=== PATIENT | male | born 1985 | race Two or more races ===

== ENCOUNTER 2019-05-14 16:30 | Emergency (ER) | payer SELFPAY ==
[~2019-05-14] VITALS: Ht 160 cm; Wt 81.9 kg
[2019-05-14 17:31] VITALS: BP 140/95
== END 2019-05-14 18:02 | disposition home or self-care (01) ==
LOC: ER 16:30
DX: J03.90 Acute tonsillitis, unspecified (principal); J06.9 Acute upper respiratory infection, unspecified